=== PATIENT | female | born 1980 | race Caucasian/White ===

== ENCOUNTER 2022-12-27 08:07 | Day surgery (SDC) | payer OTHER, SELFPAY ==
[2022-12-12 14:43] VITALS: BMI 34.3
[2022-12-27] VITALS (11 sets, daily range): BP systolic 87–130; BP diastolic 64–87; PULSE 78–101; RESP 10–22; TEMP 35.8–36.8; O2SAT 95–99; BMI 33.4
--- NOTE | 2022-12-27 | PATH_ITS ---
[facility] Accession Number: [id number] No. of containers..01 Tissue . 01 Material submitted: . uterus - UTERUS, BILATERAL FALLOPIAN TUBES AND BILATERAL OVARIES . 01 Diagnosis: Uterus, Right and Left Fallopian Tubes and Ovaries, Supracervical Hysterectomy and Bilateral Salpingo-oophorectomy: Endometrium: Inactive to weakly proliferative. Serosa: No significant pathologic abnormalities. Myometrium: No significant pathologic abnormalities. Fallopian tubes: Multiple benign paratubal cysts. Ovaries: Multiple cystic follicles and surface epithelial glandular inclusions. [facility] 01/04/2023 1758 Local . 01 Electronically signed: . Josefa Temple MD, Pathologist NPI- [id number] . 01 Gross description: . The specimen is received in formalin labeled with the patient's name, , and uterus, bilateral fallopian tubes, and bilateral ovaries consists of a fragmented uterus (45 grams, aggregating to 8.0 x 6.3 x 4.0 cm) with two detached, unoriented, fimbriated fallopian tubes (5.0 x 0.7 cm and 5.6 x 0.9 cm) and two detached unoriented ovaries (first ovary weighs 14 grams and measuring 3.6 x 2.5 x 2.5 cm, and the second ovary weighs 14 grams and measures 3.7 x 2.6 x 2.4 cm), with no cervix identified. The serosa is dockery and wrinkled with no evidence of hemorrhage or adhesion identified. The presumed endometrium is brown and velvety, and averages 0.1 cm thick with no lesions identified. The myometrium is dockery and trabecular with no nodules or lesions identified. . The longer fallopian tube has violaceous smooth serosa with multiple cystic structures measuring up to 0.9 cm in greatest dimension filled with clear serous fluid. Sectioning reveals an unremarkable stellate lumen. The first ovary has a dockery, cerebriform external surface with multiple defects possibly consistent with previous incision. Sectioning reveals several thin smooth-walled cystic structures ranging from 0.1 to 0.4 cm in greatest dimension filled with serous fluid and no excrescences identified. The remaining cut surface is yellow to dockery and unremarkable. . The shorter fallopian tube has dockery smooth serosa with multiple cystic structures measuring up to 1.7 cm in greatest dimension filled with clear serous fluid. Sectioning reveals an unremarkable stellate lumen. The second ovary has a dockery cerebriform external surface with a longitudinal defect consistent with previous incision. Sectioning reveals several small thin smooth-walled cystic structures ranging from 0.1 to 0.3 cm in greatest dimension with no excrescences identified. The remaining surface is yellow to dockery and unremarkable. . [employer] sections are submitted as follows: A1: Endometrium. A2: Serosa. A3: Longer fallopian tube to include one-half of bisected fimbriae and cross sections. A4: [employer] first ovary. A5: Reading fallopian tube to include one-half of the bisected fimbriae and cross sections. A6: [employer] second ovary. ([id number]) /MRV 12/28/2022 1604 Local . 01 Pathologist provided ICD-10: N92.0, E28.2 . 01 CPT . [id number] Specimen Comment: A courtesy copy of this report has been sent to [phone] Performed at: 01 [facility] [address] [place] [address], [place], [place] [id number] MD Ihsan Rodrigues MD Phone: [phone]
[2022-12-27] MEDS: LACTATED RINGERS 1,000 ML 100 ML IV ×3 (08:38→12:51)
--- NOTE | 2022-12-27 09:11 | PM.PREOP ---
Pre-operative Note COVID-19 Criteria for continued procedure: Non-surgical alternatives not available or appropriate per current SOC Interval Note History & Physical reviewed/Exam performed by Physician: Yes Changes to H&P: No H&P completed within 30 days and has changed as indicated here:: 12/21/22
--- NOTE | 2022-12-27 09:53 | SUR.OPER ---
Lithotomy on padded OR bed. [place] Pad Positioner under torso. Head on pillow, arms padded and tucked at sides. Legs secured in padded yellow fins stirrups.
[2022-12-27] MEDS: CEFAZOLIN 2 GM/100 ML PREMIX 100 ML IV (10:01)
[2022-12-27] MEDS: BUPIVACAINE 0.5% (PF) 30 ML, EPINEPHrine 0.15 MG INJ (10:02)
[2022-12-27] MEDS: ROPIVACAINE 0.2% PF 2 MG/ML 20ML AMP 20 ML INJ (10:03)
--- NOTE | 2022-12-27 11:07 | PM.GYNOP.1 ---
Operative Date/Time/Diagnoses Date of procedure: 12/27/22 Time of procedure: 11:07 Pre-op diagnosis: Severe PMDD Post-op diagnosis: same Procedure & Clinicians Procedure: Procedures Operation Date: 12/27/22 09:45 Actual Procedure Side Surgeon p Laparoscopic Supracervical Hysterectomy w/ bilateral salpingo-oophorectomy Anisa Madsen MD Indications: Patient is a 42-year-old 0 with severe PMDD and polycystic ovaries who presents for a laparoscopic supracervical hysterectomy with bilateral salpingo-oophorectomy. Patient tried oral contraceptives and an IUD. Surgeon: Anisa Madsen Fastener Sewing Machine Operator: Airam Slaughter Anesthesia Type: General and Local Operative Notes Findings: 7 week size anteverted uterus Bilateral paratubal cysts Otherwise normal fallopian tubes Polycystic ovaries bilaterally Normal liver Normal appendix Closure Type: primary Specimen(s): left tube & ovary, right tube & ovary and uterus Applied: catheter (Removed at the end of the case) Estimated blood loss (mL): 20 Blood products transfused: none Procedure in detail: The patient was taken to the operating room where she was placed in the dorsal supine position. After adequate general endotracheal anesthesia was achieved, she was placed in the dorsal lithotomy position, and prepped and draped in the usual sterile fashion. A timeout was performed. A bivalve speculum was placed into the vagina and the anterior lip of the cervix grasped with a single-tooth tenaculum. The cervical os was sequentially dilated until the ZUMI uterine manipulator could pass easily into the endometrial cavity. The single-tooth tenaculum was removed from the anterior lip of the cervix, and the bivalve speculum was removed from the vagina. Attention was then turned to the abdomen where 6 mL of half percent Marcaine with epinephrine were injected in the umbilical fold. A 5 mm incision was made. The veress needle was placed into the peritoneal cavity, and its placement confirmed by aspiration and drop test. The veress needle was removed. A 5 mm trocar was placed without difficulty. 2 other incisions were made 4 cm lateral to the umbilicus after 5 mL of half percent Marcaine with epinephrine were injected. These were 5 mm incisions. Two, 5 mm trocars were placed under direct visualization. The right tube and ovary were grasped with an atraumatic grasper. Using the LigaSure the infundibulopelvic ligament was cauterized and cut. The broad ligament and round ligament were cauterized and cut with the LigaSure. The cornua of the uterus was then grasped with an atraumatic grasper. Hemostasis was achieved. The bladder flap was created using the LigaSure with cautery and cut shelter across. The uterine arteries on the right side were extensively cauterized with the LigaSure. All of this was repeated on the left side. The remainder of the bladder flap was created using the LigaSure, and the bladder taken down off the lower uterine segment and cervix. Using the Linaloop, the cervix was amputated from the uterus 2 cm above the uterosacral ligaments, after the ZUMI uterine manipulator was removed from the uterus and a moistened sponge stick was placed in the vagina. There was no bleeding from the cervix. Using the spatula cautery, the endocervical canal was extensively cauterized. 6 mL of half percent Marcaine with epinephrine were injected above the pubic symphysis. A 12mm incision was made. A 12 mm trocar was placed under direct visualization. The trocar was removed. An Endobag was placed through the suprapubic trocar and the uterus and tubes were placed into the Endobag. The edges of the bag were brought up through the skin. The fascial incision was extended with Avila scissors. The uterus was grasped with a Chuy. The Hansel was placed into the bag and into the peritoneal cavity. The uterus was morcellated in approximately 8 pieces. The tubes and ovaries were also removed from the Endobag. The Endobag was removed from the peritoneal cavity with the Hansel. The fascia on the suprapubic incision was closed with 0 Vicryl in a running fashion. The abdomen was re-insufflated with carbon dioxide gas. The pelvis was copiously irrigated with warm normal saline. No bleeding was noted. 20 mL of 0.2% ropivacaine were placed over the pelvic pedicles. The instruments were removed from the abdomen. The CO2 was allowed to escape. Two simple interrupted sutures with 3-0 Vicryl were placed in the subcutaneous layer on the suprapubic incision. All of the incisions were closed with 4-0 Biosyn in a subcuticular fashion. Steri strips and Allevyn dressings were placed over the incisions. The moistened sponge stick was removed from the vagina. Sponge, lap, and instrument counts were correct x 2. The patient tolerated the procedure well, was taken to PACU in stable condition. Complications: none Post-operative Condition: stable Disposition: PACU Plan for aftercare: To acute care after recovery
[2022-12-27] MEDS: ONDANSETRON 4 MG/2 ML INJ IV ×2 (12:16→18:09)
[2022-12-27] MEDS: ACETAMINOPHEN 325 MG TABLET 650 MG PO ×2 (12:53→18:09)
[2022-12-27] MEDS: SODIUM CHLORIDE 0.9% 500 ML 1000 ML IV (15:30)
[2022-12-27 17:12] LABS: Hematocrit 34.9 % (36-46); Hemoglobin 11.7 g/dL (12.0-16.0)
[2022-12-27] MEDS: KETOROLAC 30 MG/ML VIAL IV (18:09)
--- NOTE | 2022-12-27 18:25 | PC.NURSE ---
Pt arrived to unit @ 1415, A&Ox4, pain 2/10 and c/o of slight nausea so IV Zofran was administered. X4 lap sites w/ allevon dressing were C/D/I and victoria pad. Pt was drinking fluids well, SCDs applied, VS were [id number] & LR @100ml/hr as per order. @1437, Pt vomitted and BP was 87/73 HR 101. Gomez ASCENCIO, called me over to pt room where I put pt in Trendelenburg position and rechecked VS. Repositioning was effective becuase BP 109/67 HR 98 & 11/71 HR 100. Pt was symptomatic d/t c/o dizziness, some nausea still and lightheadedness. I had the pt stay in supine position for about 30 mins to see if BP will improve more and had VS taken [id number] and will recheck pt. @1510 rechecked pt and BPs read: 93/57 HR 95 & 100/61 HR [address] I [address] Dr[address] Madsen to inform of pt's condition, stating her pressures were soft and that the BP she came in presx were 130/78 @[address] Madsen ordered 500ml bolus of NS & STAT H&H verbal order. Bolus was effective BP 112/71 HR 96, pt was not c/o dizziness or nausea. I helped pt to sit at bedside and then up to commode and pt's BP was 120/86 sitting. Void 800 ml clear yellow w/ sm blood clots. Dr. Madsen came to pt's room later to check on pt and stated that if anything else happens with pt or if she needs anything, to call her and not the on-call MD. Will communicate to night RN.
[2022-12-27] MEDS: OXYCODONE IR 5 MG TABLET PO (20:12)
[2022-12-27] MEDS: buPROPion SR 100 MG TAB 200 MG PO (20:13)
[2022-12-27] MEDS: MESALAMINE 400 MG CAP.DRTAB. 1600 MG PO (20:13)
[2022-12-27] MEDS: DOCUSATE 100 MG CAPSULE 200 MG PO (20:18)
[2022-12-28] MEDS: OXYCODONE IR 5 MG TABLET PO ×2 (04:59→10:51)
[2022-12-28] MEDS: ACETAMINOPHEN 325 MG TABLET 650 MG PO (06:28)
[2022-12-28] MEDS: KETOROLAC 30 MG/ML VIAL IV (06:28)
[2022-12-28] MEDS: PANTOPRAZOLE DR 40 MG TABLET PO (06:28)
[2022-12-28 06:43] LABS: Add Manual Diff / Slide Review NO; Basophils Absolute Auto 0 /uL (0-100); Basophils Percent Auto 0.1 % (0-2); Eosinophils Absolute Auto 0 /uL (0-450); Hematocrit 33.2 % (36-46); Hemoglobin 11.3 g/dL (12.0-16.0); Lymphocytes Absolute Auto 1200 /uL (1100-4500); Lymphocytes Percent Auto 8.3 % (25-40); Mean Corpuscular Hemoglobin 28.9 PG (26-34); Mean Corpuscular Volume 85.3 fL (80-100); Monocytes Absolute Auto 1100 /uL (0-900); Monocytes Percent Auto 7.9 % (3-14); Neutrophils Absolute Auto 12000 /uL (1500-7000); Neutrophils Percent Auto 83.7 % (50-75); Platelet Count 192 X10^3/uL (150-400); Red Blood Cell Count 3.89 X10^6/uL (4.0-5.2); Red Cell Distribution Width 13.9 % (11.6-14.8); White Blood Cell Count 14.3 X10^3/uL (4.5-11.0)
[2022-12-28 07:00] VITALS: BP 100/71; PULSE 65
[2022-12-28] MEDS: DOCUSATE 100 MG CAPSULE 200 MG PO (08:28)
[2022-12-28] MEDS: CHOLECALCIFEROL (VITAMIN D3) 5,000 UNIT TABLET 5000 UNIT PO (08:28)
--- NOTE | 2022-12-28 13:41 | CM.DANOTE ---
Patient is a 42 yo female who was admitted on 12/27/22 for Lap Hysterectomy. Pt has [facility] [employer] for insurance and her PCP is Lindsay Bowles. EMR was reviewed. Per OBGYN, pt tolerated surgery well and overnight had some n/v and low bp so was given bolus and has remained medically stable now for discharge home today and no identified barriers to discharge. Per RN, no concerns at this time and d/c instructions provided and pt's pain managed and ambulating independently and voided. Plan: Patient discharged home this morning via family POV and outpt f/u and no further SW needs at this time. LAURENCE Begum Discharge Planning/Care Management Pre-Anesthesia Assessment Start: 12/12/22 14:43 Freq: Status: Complete Protocol: Document 12/12/22 14:43 TC (Rec: 12/12/22 14:59 TC [id number]) Pre-Anesthesia Assessment Patient Information Reviewed Via Chart Review Primary Care Provider Lindsay Bowles Medical Clearance Received Not Applicable Seen Specialist in Last 12 Months Yes Specialist Seen [employer] Primary Language Austrian Preferred Language Austrian Height 167.64 cm Weight 96.615 kg Body Mass Index (BMI) 34.3 Hx Anesthesia Reactions Yes: Tends to need more anesthesia- wakes up to soon Anesthesia Review Requested No Green Plumber No Smoking Status Never smoker Patient is completely paralyzed or No completely immobile Hx Sleep Apnea Yes Currently Taking a Beta Corinne No Anti-Coagulant Therapy No Cardiac Testing No Hx Pacemaker/ICD No Pacemaker Rep Required? No Cardiac Clearance Received No Diabetes Yes Marital Status Unknown Support System Parent(s) Patient Discharge Plan Description Return Home Health Care Proxy/Next of Kin Sandra (mother) Health Care Proxy
== END 2022-12-28 11:00 | disposition home or self-care (01) ==
LOC: OR 08:07 → AC 08:08
PROVIDERS: PCP Physician Assistant Medical; Referring Provider Obstetrics & Gynecology; Visit Provider Obstetrics & Gynecology
PROC: 0UT94ZL Resection of Uterus, Supracervical, Percutaneous Endoscopic Approach (ICD-10-PCS; CPT 58542; principal; 2022-12-27 09:45)
DX: N92.1 Excessive and frequent menstruation with irregular cycle (principal); E28.2 Polycystic ovarian syndrome; N83.8 Other noninflammatory disorders of ovary, fallopian tube and broad ligament
CPT/HCPCS: 58542; 36415; 81025; 85014; 85018; 85025; J0171; J0690; J1100; J1170; J1885; J2250; J2405; J2704; J2795; J3010; J3490